=== PATIENT | male | born 1965 | race Caucasian/White ===

== ENCOUNTER 2024-03-23 20:50 | Inpatient (IN) | payer OTHER ==
[~2024-03-23] VITALS: Ht 170.2 cm; Wt 157.4 kg
[2024-03-23 20:57] VITALS: BP 166/59; PULSE 112; RESP 16; TEMP 97.9; O2SAT 97
[2024-03-23 22:16] VITALS: O2SAT 99
[2024-03-23 22:52] LABS: BASOPHILS # (AUTO) 0.1 K/uL (0.00-0.22); BASOPHILS % (AUTO) 0.8 % (0.0-2.0); EOSINOPHILS # (AUTO) 0.3 K/uL (0-0.4); EOSINOPHILS % (AUTO) 2.5 % (0.0-4.0); HEMATOCRIT 30.9 % (36-52); HEMOGLOBIN 10.5 g/dL (12.0-18.0); LYMPHOCYTES # (AUTO) 0.8 K/uL (2.0-11.5); MEAN CORPUSCULAR HEMOGLOBIN 34 pg (27-31); MEAN CORPUSCULAR HGB CONC 34 g/dL (33-37); MEAN CORPUSCULAR VOLUME 99.4 fL (80-94); MONOCYTES # (AUTO) 0.5 K/uL (0.8-1.0); MONOCYTES % (AUTO) 4.2 % (1.7-9.3); NEUTROPHILS # (AUTO) 9.7 K/uL (1.8-7.7); NEUTROPHILS % (AUTO) 85.5 % (42.2-75.2); PLATELET COUNT (AUTO) 99 K/uL (140-450); RED BLOOD CELL COUNT(AUTO) 3.11 MIL/uL (4.20-6.10); RED CELL DISTRIBUTION WIDTH 18.5 % (11.6-13.7); WHITE BLOOD COUNT (AUTO) 11.4 K/uL (4.8-10.8)
[2024-03-23 23:13] LABS: INR 2.35 (0.8-1.2); PARTIAL THROMBOPLASTIN TIME 38.9 secs (22-35.6); PROTHROMBIN TIME 23.5 secs (10.8-13.4)
[2024-03-23 23:22] LABS: ALBUMIN 1.5 g/dL (3.4-5.0); ANION GAP 11.1 (8-16); CALCIUM 8.1 mg/dL (8.5-10.1); CARBON DIOXIDE 24.6 mmol/L (21-32); POTASSIUM 3.7 mmol/L (3.5-5.1); TOTAL BILIRUBIN 7.5 mg/dL (0.0-1.0); TOTAL PROTEIN, SERUM 6.8 g/dL (6.4-8.2)
[2024-03-24] VITALS (7 sets, daily range): BP systolic 136–137; BP diastolic 59–62; PULSE 71–106; RESP 16–17; TEMP 97.9–98; O2SAT 94–98
[2024-03-24] MEDS ORDERED: MORPHINE SULFATE 4 MG/ML SYR ONE (01:02)
[2024-03-24] MEDS: MORPHINE SULFATE 4 MG/ML SYR IVP ONE (01:03)
[2024-03-24] MEDS ORDERED: NACL 0.9% 1,000 ML IV SCH (10:15)
[2024-03-24] MEDS ORDERED: ONDANSETRON 4 MG/2 ML VIAL IVP PRN (10:15)
[2024-03-24] MEDS ORDERED: MORPHINE SULFATE 4 MG/ML SYR IVP PRN (10:20)
[2024-03-24 13:46] LABS: MAGNESIUM 1.6 mg/dL (1.8-2.4); PHOSPHORUS 3.4 mg/dL (2.5-4.9)
[2024-03-24 13:57] LABS: THYROID STIMULATING HORMONE 1.44 uIU/mL (0.34-3.74)
[2024-03-24] MEDS: PHYTONADIONE 10 MG in NACL 0.9% 50 ML IV SCH (15:13)
[2024-03-24] MEDS ORDERED: LACTULOSE 20 GM/30 ML UDC PO SCH (20:25)
[2024-03-25] VITALS: PULSE 105
[2024-03-25 04:30] VITALS: BP 140/59; PULSE 105; RESP 17; TEMP 97.8; O2SAT 99
[2024-03-25 05:53] LABS: BASOPHILS % (AUTO) 0.1 % (0.0-2.0); EOSINOPHILS # (AUTO) 0.3 K/uL (0-0.4); EOSINOPHILS % (AUTO) 2.4 % (0.0-4.0); HEMATOCRIT 29.3 % (36-52); HEMOGLOBIN 9.9 g/dL (12.0-18.0); LYMPHOCYTES # (AUTO) 0.6 K/uL (2.0-11.5); LYMPHOCYTES % (AUTO) 4.6 % (20.5-51.1); MEAN CORPUSCULAR HEMOGLOBIN 34 pg (27-31); MEAN CORPUSCULAR HGB CONC 34 g/dL (33-37); MEAN CORPUSCULAR VOLUME 99.8 fL (80-94); MONOCYTES # (AUTO) 0.6 K/uL (0.8-1.0); MONOCYTES % (AUTO) 5.1 % (1.7-9.3); NEUTROPHILS # (AUTO) 10.6 K/uL (1.8-7.7); NEUTROPHILS % (AUTO) 87.8 % (42.2-75.2); PLATELET COUNT (AUTO) 79 K/uL (140-450); RED BLOOD CELL COUNT(AUTO) 2.93 MIL/uL (4.20-6.10); RED CELL DISTRIBUTION WIDTH 18.3 % (11.6-13.7)
[2024-03-25 06:30] LABS: ALBUMIN 1.3 g/dL (3.4-5.0); ANION GAP 10.8 (8-16); CALCIUM 7.7 mg/dL (8.5-10.1); CARBON DIOXIDE 24.2 mmol/L (21-32); CREATININE 0.9 mg/dL (0.6-1.3); MAGNESIUM 1.5 mg/dL (1.8-2.4); PHOSPHORUS 3.1 mg/dL (2.5-4.9); TOTAL BILIRUBIN 6.2 mg/dL (0.0-1.0); TOTAL PROTEIN, SERUM 6.4 g/dL (6.4-8.2)
[2024-03-25 08:00] VITALS: BP 133/68; PULSE 108; PULSE 71; RESP 17; RESP 22; TEMP 97.8; O2SAT 99
[2024-03-25] MEDS: FUROSEMIDE 40 MG/4 ML VIAL IVP SCH ×2 (08:43→18:48)
[2024-03-25] MEDS: ALBUMIN HUMAN 5 % 250 ML IV SCH (08:43)
[2024-03-25] MEDS: LACTULOSE 20 GM/30 ML UDC PO SCH ×2 (08:43→18:47)
[2024-03-25] MEDS: SPIRONOLACTONE 50 MG TAB PO SCH (08:43)
[2024-03-25 12:00] VITALS: BP 136/59; PULSE 106; RESP 17; TEMP 98; O2SAT 97
[2024-03-25] MEDS: MAG SULF 2000 MG/WATER PREMIX 50 ML IV SCH (12:06)
[2024-03-25 16:00] VITALS: BP 124/53; PULSE 112; RESP 17; TEMP 97; O2SAT 95
[2024-03-25 20:00] VITALS: BP 119/68; PULSE 108; PULSE 120; RESP 17; RESP 19; TEMP 99.5; O2SAT 95
[2024-03-25] MEDS: RIFAXIMIN 550 MG TAB PO SCH (21:21)
[2024-03-26] VITALS: BP 134/70; PULSE 80; RESP 18; TEMP 97.6; O2SAT 97
[2024-03-26 04:00] VITALS: BP 115/54; PULSE 97; RESP 18; TEMP 98; O2SAT 95
[2024-03-26 06:08] LABS: HEPATITIS A ANTIBODY IGM Negative (Negative); HEPATITIS B CORE AB TOTAL Negative (Negative); HEPATITIS B CORE, IGM Negative (Negative); HEPATITIS B SURFACE ANTIBODY Non Reactive (.); HEPATITIS B SURFACE ANTIGEN Negative (Negative); HEPATITIS C VIRUS ANTIBODY Non Reactive (Non Reactive)
[2024-03-26 06:10] LABS: HEMATOCRIT 25.3 % (36-52); MEAN CORPUSCULAR HEMOGLOBIN 35 pg (27-31); MEAN CORPUSCULAR HGB CONC 35 g/dL (33-37); MEAN CORPUSCULAR VOLUME 98.1 fL (80-94); PLATELET COUNT (AUTO) 58 K/uL (140-450); RED BLOOD CELL COUNT(AUTO) 2.58 MIL/uL (4.20-6.10); RED CELL DISTRIBUTION WIDTH 17.8 % (11.6-13.7); WHITE BLOOD COUNT (AUTO) 10.1 K/uL (4.8-10.8)
[2024-03-26 06:20] LABS: ALBUMIN 1.1 g/dL (3.4-5.0); ANION GAP 9.9 (8-16); CALCIUM 7.2 mg/dL (8.5-10.1); CARBON DIOXIDE 23.5 mmol/L (21-32); CREATININE 0.9 mg/dL (0.6-1.3); MAGNESIUM 1.4 mg/dL (1.8-2.4); PHOSPHORUS 3.1 mg/dL (2.5-4.9); POTASSIUM 3.4 mmol/L (3.5-5.1); TOTAL BILIRUBIN 4.9 mg/dL (0.0-1.0); TOTAL PROTEIN, SERUM 5.8 g/dL (6.4-8.2)
[2024-03-26 07:18] LABS: EOSINOPHILS % (MANUAL) 5 % (0-4); LYMPHOCYTES % (MANUAL) 16 % (20-46); MONOCYTES % (MANUAL) 14 % (5-12)
[2024-03-26 08:00] VITALS: BP 125/61; PULSE 120; PULSE 91; RESP 17; RESP 18; TEMP 97.9; O2SAT 95
[2024-03-26] MEDS: MEDS-TO-BEDS MC SCH (09:00)
[2024-03-26] MEDS: CEFEPIME 1,000 MG in DEXTROSE 5% 50 ML IV SCH (09:49)
[2024-03-26 15:04] LABS: HEPATITIS A ANTIBODY TOTAL Positive (Negative)
[2024-03-26 16:00] VITALS: BP 132/56; PULSE 96; RESP 16; TEMP 98; O2SAT 99
[2024-03-26] MEDS: MAG SULF 2000 MG/WATER PREMIX 100 ML IV SCH (18:16)
[2024-03-26 18:47] LABS: APPEARANCE,URINE HAZY (CLEAR); BILIRUBIN,URINE 1+ (NEGATIVE); BLOOD, URINE 3+ (NEGATIVE); COLOR,URINE YELLOW (YELLOW); LEUKOCYTE ESTERASE ,URINE 2+ (NEGATIVE); NITRITE, URINE POSITIVE (NEGATIVE); PROTEIN,URINE TRACE (NEGATIVE); UGLUCOSE NEGATIVE (NEGATIVE)
[2024-03-26 18:51] LABS: ICTOTEST POSITIVE (NEGATIVE); RBC,URINE 11-20 (MOD) /HPF (0-5)
[2024-03-26 18:52] LABS: BACTERIA,URINE 2+ /HPF (None Seen); MUCUS,URINE None Seen /LPF (None Seen); SQUAMOUS EPITHELIAL CELL,UR 0-3 (FEW) /LPF (0-3 (FEW))
[2024-03-26 20:00] VITALS: BP 152/72; PULSE 94; RESP 17; RESP 19; TEMP 96.9; O2SAT 96
[2024-03-27] MEDS ORDERED: HYDROmorphone 1 MG/ML AMP IVP PRN (00:55)
[2024-03-27 01:43] LABS: ALBUMIN 1.1 g/dL (3.4-5.0); ANION GAP 8.2 (8-16); CALCIUM 7.1 mg/dL (8.5-10.1); CARBON DIOXIDE 26.2 mmol/L (21-32); CREATININE 0.8 mg/dL (0.6-1.3); POTASSIUM 3.4 mmol/L (3.5-5.1); TOTAL BILIRUBIN 4.4 mg/dL (0.0-1.0); TOTAL PROTEIN, SERUM 5.7 g/dL (6.4-8.2)
[2024-03-27 04:00] VITALS: BP 120/62; PULSE 80; RESP 18; TEMP 97.4; O2SAT 100
[2024-03-27 05:04] LABS: HEMATOCRIT 26.1 % (36-52); HEMOGLOBIN 9.1 g/dL (12.0-18.0); MEAN CORPUSCULAR HEMOGLOBIN 34 pg (27-31); MEAN CORPUSCULAR HGB CONC 35 g/dL (33-37); MEAN CORPUSCULAR VOLUME 97.5 fL (80-94); PLATELET COUNT (AUTO) 58 K/uL (140-450); RED BLOOD CELL COUNT(AUTO) 2.67 MIL/uL (4.20-6.10); WHITE BLOOD COUNT (AUTO) 9.9 K/uL (4.8-10.8)
[2024-03-27 05:21] LABS: ALBUMIN 1.1 g/dL (3.4-5.0); ANION GAP 8.9 (8-16); CALCIUM 7.1 mg/dL (8.5-10.1); CARBON DIOXIDE 24.4 mmol/L (21-32); CREATININE 0.8 mg/dL (0.6-1.3); MAGNESIUM 1.3 mg/dL (1.8-2.4); POTASSIUM 3.3 mmol/L (3.5-5.1); TOTAL BILIRUBIN 4.4 mg/dL (0.0-1.0); TOTAL PROTEIN, SERUM 5.7 g/dL (6.4-8.2)
[2024-03-27 06:07] LABS: EOSINOPHILS % (MANUAL) 4 % (0-4); LYMPHOCYTES % (MANUAL) 10 % (20-46); MONOCYTES % (MANUAL) 13 % (5-12)
[2024-03-27 08:00] VITALS: PULSE 93; RESP 17
[2024-03-27] MEDS: BUMETANIDE 1 MG/4 ML VIAL IV SCH (09:38)
[2024-03-27] MEDS: MAG SULF 2000 MG/WATER PREMIX 50 ML IV SCH (09:41)
[2024-03-27] MEDS: POTASSIUM CHLORIDE 10 MEQ TABER PO SCH (13:27)
[2024-03-27] MEDS: SODIUM CHLORIDE 1 GM TAB PO SCH (17:00)
[2024-03-27] MEDS: ALBUMIN HUMAN 25% 100 ML IV SCH (17:01)
[2024-03-27 20:10] VITALS: BP 128/54; PULSE 101; RESP 19; TEMP 97.6; O2SAT 98
[2024-03-27 20:11] VITALS: PULSE 101; RESP 19; O2SAT 98
[2024-03-28 00:10] VITALS: BP 102/42; PULSE 106; RESP 16; TEMP 99; O2SAT 100
[2024-03-28 04:07] VITALS: BP 122/51; PULSE 99; RESP 18; TEMP 98.4; O2SAT 100
[2024-03-28] MEDS: IBUPROFEN 600 MG TAB PO PRN (04:25)
[2024-03-28 05:14] LABS: BASOPHILS % (AUTO) 0.3 % (0.0-2.0); EOSINOPHILS # (AUTO) 0.6 K/uL (0-0.4); EOSINOPHILS % (AUTO) 5.8 % (0.0-4.0); HEMATOCRIT 26.3 % (36-52); HEMOGLOBIN 9.2 g/dL (12.0-18.0); LYMPHOCYTES # (AUTO) 1.3 K/uL (2.0-11.5); LYMPHOCYTES % (AUTO) 13.3 % (20.5-51.1); MEAN CORPUSCULAR HEMOGLOBIN 34 pg (27-31); MEAN CORPUSCULAR HGB CONC 35 g/dL (33-37); MEAN CORPUSCULAR VOLUME 97.4 fL (80-94); NEUTROPHILS # (AUTO) 6.9 K/uL (1.8-7.7); PLATELET COUNT (AUTO) 59 K/uL (140-450); WHITE BLOOD COUNT (AUTO) 9.8 K/uL (4.8-10.8)
[2024-03-28 05:26] LABS: ALBUMIN 1.5 g/dL (3.4-5.0); ANION GAP 10.2 (8-16); CALCIUM 7.5 mg/dL (8.5-10.1); CARBON DIOXIDE 24.6 mmol/L (21-32); CREATININE 0.7 mg/dL (0.6-1.3); POTASSIUM 3.8 mmol/L (3.5-5.1); TOTAL BILIRUBIN 5.4 mg/dL (0.0-1.0)
[2024-03-28 05:44] LABS: NEUTROPHILS % (AUTO) 70.6 % (42.2-75.2)
[2024-03-28 08:00] VITALS: PULSE 82; RESP 18; O2SAT 100
[2024-03-28] MEDS ORDERED: COMMUNICATION ORDER MC SCH (14:50)
[2024-03-28] MEDS: TOLVAPTAN 15 MG TAB PO SCH (15:30)
[2024-03-28 20:18] VITALS: BP 103/44; PULSE 94; RESP 22; TEMP 98; O2SAT 100
[2024-03-28 20:19] VITALS: PULSE 94; RESP 22; O2SAT 100
[2024-03-29 04:32] VITALS: BP 111/55; PULSE 93; RESP 12; TEMP 95.7; O2SAT 100
[2024-03-29 08:00] VITALS: PULSE 91; RESP 18; O2SAT 100
[2024-03-29 12:00] VITALS: BP 111/55; PULSE 91; RESP 18; TEMP 95.7; O2SAT 100
[2024-03-29] MEDS ORDERED: FOAM DRESSING TP PRN (12:15)
[2024-03-29] MEDS ORDERED: HYDRAGUARD CREAM TP PRN (12:15)
[2024-03-29] MEDS ORDERED: ALGINATE ROPE MC PRN (12:15)
[2024-03-29] MEDS: HYDRAGUARD CREAM TP SCH (12:52)
[2024-03-29] MEDS: ALGINATE ROPE MC SCH (13:46)
[2024-03-29] MEDS: FOAM DRESSING TP SCH (13:47)
[2024-03-29] MEDS: BUMETANIDE 1 MG/4 ML VIAL IV SCH (15:44)
[2024-03-29 19:45] VITALS: BP 126/56; PULSE 98; RESP 18; TEMP 97; O2SAT 96
[2024-03-29 20:00] VITALS: PULSE 98; RESP 18; O2SAT 96
[2024-03-30 04:00] VITALS: BP 111/51; PULSE 98; RESP 18; TEMP 97; O2SAT 93
[2024-03-30 05:16] LABS: ALBUMIN 1.4 g/dL (3.4-5.0); ANION GAP 10.6 (8-16); CALCIUM 7.9 mg/dL (8.5-10.1); CARBON DIOXIDE 25.7 mmol/L (21-32); CREATININE 0.8 mg/dL (0.6-1.3); POTASSIUM 4.3 mmol/L (3.5-5.1); TOTAL BILIRUBIN 6.1 mg/dL (0.0-1.0); TOTAL PROTEIN, SERUM 6.4 g/dL (6.4-8.2)
[2024-03-30 08:00] VITALS: PULSE 94; RESP 18; O2SAT 96
[2024-03-30 12:00] VITALS: BP 110/42; PULSE 94; RESP 18; TEMP 97.7; O2SAT 97
[2024-03-30 16:13] VITALS: BP 143/73; PULSE 94; RESP 18; TEMP 98
[2024-03-30] MEDS ORDERED: LACT10SO11 PO (17:02)
[2024-03-30] MEDS ORDERED: CEFE1SOL IV (17:02)
[2024-03-30] MEDS ORDERED: IBUP-2213 PO (17:02)
[2024-03-30] MEDS ORDERED: SPIR50TA PO (17:02)
== END 2024-03-30 19:55 | DRG 300 ==
LOC: MED 20:50 → MMU 03-24 10:20
PROVIDERS: ADMIT Student in an Organized Health Care Education/Training Program; ATTEND Student in an Organized Health Care Education/Training Program
DX: I73.9 Peripheral vascular disease, unspecified (principal); D68.59 Other primary thrombophilia; E72.20 Disorder of urea cycle metabolism, unspecified; N39.0 Urinary tract infection, site not specified; R78.81 Bacteremia; E87.1 Hypo-osmolality and hyponatremia; R74.01 Elevation of levels of liver transaminase levels; D69.6 Thrombocytopenia, unspecified; I89.0 Lymphedema, not elsewhere classified; D53.9 Nutritional anemia, unspecified; I10 Essential (primary) hypertension; E86.1 Hypovolemia; D72.829 Elevated white blood cell count, unspecified; E83.42 Hypomagnesemia; E87.6 Hypokalemia; Z79.899 Other long term (current) drug therapy; Z88.8 Allergy status to other drugs, medicaments and biological substances; K70.30 Alcoholic cirrhosis of liver without ascites
CPT/HCPCS: 36415; 70450; 71045; 71260; 72125; 73562; 80053; 81001; 82105; 82140; 82550; 83735; 84100; 84443; 85025; 85610; 85730; 86704; 86706; 86708; 86709; 86803; 87040; 87070; 87075; 87086; 87186; 87205; 87340; 92526; 93925; 96374; 97112; 97163-GP; 99285; J0692; J1940; J2270; J3430; J3475; J3490; J7060; P9041; P9046; Q0092; Q9967